=== PATIENT | male | born 1990 ===

== ENCOUNTER 2020-10-14 09:19 | Day surgery (SDC) | payer SELFPAY ==
[~2020-10-14] VITALS: Ht 175.3 cm; Wt 107.1 kg
[2020-10-14 09:52] VITALS: BP 135/90; PULSE 59; TEMP 98
--- NOTE | 2020-10-14 11:25 | NUR ---
Patient arrives to [facility] via cart, accompanied by endo RN Danielle Muro. Bedside report is received. Patient ambulates to the chair in his room with steady gait and standby assist. Monitoring is applied -VSS and WNL on room air. He denies pain, nausea, or other complaints. He is alert and oriented. He is offered something to eat/drink and requests/receives orange juice. PIV to TKO. Call light in reach.
[2020-10-14 11:38] VITALS: BP 136/93; PULSE 66; TEMP 97.4
[2020-10-14 11:40] VITALS: BP 144/88; PULSE 70
--- NOTE | 2020-10-14 11:40 | NUR ---
Patient is resting comfortably in his room. He is watching TV. He has drank about 100 mLs of orange juice. Denies pain, nausea, or other complaints.
[2020-10-14 11:55] VITALS: BP 142/91; PULSE 66
--- NOTE | 2020-10-14 11:55 | NUR ---
VSS on room air. Patient denies pain, nausea, or need.
--- NOTE | 2020-10-14 12:15 | NUR ---
Patient has met discharge criteria. Discharge instructions are discussed; he denies any questions and verbalizes understanding. PIV is removed with catheter intact and hemostasis achieved. He changes to his clothing independently. Will wait until Dr. Rivera is able to come speak with the patient prior to discharging home.
--- NOTE | 2020-10-14 12:17 | NUR ---
Dr. Rivera comes to the bedside and speaks with the patient at this time.
--- NOTE | 2020-10-14 12:21 | NUR ---
Patient is escorted to the exit via wheelchair by staff. He is discharged to home with ride in private vehicle at 1221.
== END 2020-10-14 12:21 | disposition home or self-care (01) ==
LOC: SDCO 09:19
DX: K21.00 Gastro-esophageal reflux disease with esophagitis, without bleeding (principal); K92.0 Hematemesis; K29.30 Chronic superficial gastritis without bleeding; K44.9 Diaphragmatic hernia without obstruction or gangrene; R19.7 Diarrhea, unspecified; Z88.8 Allergy status to other drugs, medicaments and biological substances; E66.01 Morbid (severe) obesity due to excess calories; F17.210 Nicotine dependence, cigarettes, uncomplicated; K21.9 Gastro-esophageal reflux disease without esophagitis; Z20.822 Contact with and (suspected) exposure to COVID-19
CPT/HCPCS: J2704; J7030